=== PATIENT | female | born 2000 | race Two or more races ===

== ENCOUNTER 2023-02-14 11:50 | Emergency (ER) | payer SELFPAY ==
[2023-02-14 12:40] LABS: BASOPHILS ABSOLUTE AUTO 0.03 K/mm3 (0.01-0.08); BASOPHILS PERCENT AUTO 0.4 % (0.1-1.2); EOSINOPHILS PERCENT AUTO 1.3 (0.7-5.8); HEMATOCRIT 38.4 % (34.1-44.9); HEMOGLOBIN 13.1 gm/dl (11.2-15.7); IMMATURE GRAN ABSOLUTE AUTO 0.01 K/mm3 (0.00-0.10); IMMATURE GRAN PERCENT AUTO 0.1 % (<=1.0); LYMPHOCYTES ABSOLUTE AUTO 2.28 K/mm3 (1.18-3.74); LYMPHOCYTES PERCENT AUTO 29.2 % (19.3-51.7); MEAN CORPUSCULAR HEMOGLOBIN 31.1 pg (25.6-32.2); MEAN CORPUSCULAR HGB CONC 34.1 g/dl (32.2-35.5); MEAN CORPUSCULAR VOLUME 91.2 fl (79.4-94.8); MEAN PLATELET VOLUME 9.9 fl (9.4-12.3); MONOCYTES ABSOLUTE AUTO 0.54 K/mm3 (0.24-0.36); MONOCYTES PERCENT AUTO 6.9 % (4.7-12.5); NEUTROPHILS ABSOLUTE AUTO 4.86 K/mm3 (1.56-6.13); NEUTROPHILS PERCENT AUTO 62.1 % (34.0-71.1); PLATELET COUNT,PLT 310 K/mm3 (182-369); RED BLOOD CELL COUNT 4.21 M/mm3 (3.98-5.22); WHITE BLOOD CELL COUNT,WBC 7.82 K/mm3 (3.98-10.04)
[2023-02-14 13:23] LABS: A/G RATIO 0.9 (1-2); ALBUMIN 3.7 g/dl (3.4-5.0); ANION GAP 14.8 (5-15); BILIRUBIN TOTAL 0.4 mg/dL (0.2-1.0); CALCIUM 9.4 mg/dL (8.5-10.1); CREATININE 0.5 mg/dL (0.55-1.02); EST CRCL DRUG DOSING (CG) 132.05 mL/min; POTASSIUM,K 3.8 mEq/L (3.5-5.1)
[2023-02-14 14:04] LABS: APPEARANCE,URINE CLEAR (Clear); BILIRUBIN,URINE NEGATIVE (Negative); COLOR,URINE YELLOW (Yellow); GLUCOSE,URINE NEGATIVE (Negative); KETONES,URINE 2+ (Negative); LEUKOCYTE ESTERASE,URINE NEGATIVE (Negative); NITRITE,URINE NEGATIVE (Negative); OCCULT BLOOD,URINE 1+ (Negative); PROTEIN,URINE NEGATIVE (Negative); UROBILINOGEN,URINE 0.2 (0.2-1.0)
[2023-02-14 14:11] LABS: BACTERIA,URINE MODERATE /hpf (FEW); MUCUS,URINE MODERATE /hpf (FEW); SQUAMOUS EPITHELIAL CELLS,UR 0-5 /hpf (0-5); WBC,URINE 0-5 /hpf (0-5)
== END 2023-02-14 14:39 | disposition home or self-care (01) ==
LOC: JD.ED 11:50
DX: O26.851 Spotting complicating pregnancy, first trimester (principal); Z3A.11 11 weeks gestation of pregnancy
CPT/HCPCS: 36415; 76817; 76817-26; 80053; 81001; 84702; 85025; 86900; 86901; 99283; 99284

== ENCOUNTER 2023-05-03 16:45 | Observation (INO) | payer BC ==
[2023-05-03] MEDS ORDERED: Sodium Chloride 0.9% 10 ML Syringe FLUSH PRN (17:02)
[2023-05-03 17:31] VITALS: PULSE 91
[2023-05-03 18:03] LABS: BASOPHILS PERCENT AUTO 0.2 % (0.0-1.0); EOSINOPHILS ABSOLUTE AUTO 0.3 K/mm3 (0.0-0.4); EOSINOPHILS PERCENT AUTO 2.5 % (0.0-6.0); HEMATOCRIT 37.4 % (37.0-47.0); IMMATURE GRAN ABSOLUTE AUTO 0.03 K/mm3 (0.00-0.05); IMMATURE GRAN PERCENT AUTO 0.3 % (0.0-0.4); LYMPHOCYTES ABSOLUTE AUTO 1.8 K/mm3 (1.0-4.8); LYMPHOCYTES PERCENT AUTO 14.9 % (24.0-44.0); MEAN CORPUSCULAR HGB CONC 34.8 g/dl (32.0-36.0); MEAN CORPUSCULAR VOLUME 92.1 fl (83.0-99.0); MEAN PLATELET VOLUME 9.8 fl (9.4-12.3); MONOCYTES ABSOLUTE AUTO 0.5 K/mm3 (0.0-0.8); MONOCYTES PERCENT AUTO 4.1 % (0.0-8.0); NEUTROPHILS ABSOLUTE AUTO 9.3 K/mm3 (1.8-7.7); PLATELET COUNT,PLT 327 K/mm3 (150-400); RED BLOOD CELL COUNT 4.06 M/mm3 (4.10-5.30)
[2023-05-03] MEDS ORDERED: Misoprostol 200 MCG Tab VAG SCH (18:13)
[2023-05-03] MEDS ORDERED: Misoprostol 200 MCG Tab VAG ONE (18:15)
[2023-05-03 18:27] LABS: HEMOGLOBIN A1C 5.1 %
[2023-05-03] MEDS: Misoprostol 25 MCG (1/4 of 100 MCG) Tab VAG ONE ×2 (18:38→19:16)
[2023-05-03] MEDS: Misoprostol 25 MCG (1/4 of 100 MCG) Tab VAG SCH ×2 (18:39→20:16)
[2023-05-03 20:29] LABS: BARBITURATE SCREEN,URINE NEGATIVE (CUTOFF=200); BENZODIAZEPINES SCREEN,URINE NEGATIVE (CUTOFF=150); BUPRENORPHINE SCREEN,URINE NEGATIVE (CUTOFF=10); METHADONE SCREEN, URINE NEGATIVE (CUTOFF=200); METHAMPHETAMINES SCREEN, URINE NEGATIVE (CUTOFF=500); OXYCODONE SCREEN,URINE NEGATIVE (CUT0FF=100); THC SCREEN,URINE 20 NG/ML NEGATIVE (CUTOFF=50)
[2023-05-03 20:35] LABS: AMPHETAMINES SCREEN, URINE NEGATIVE (CUTOFF=500)
[2023-05-03] MEDS ORDERED: Sodium Chloride 0.9% 10 ML Syringe FLUSH SCH (21:00)
[2023-05-03] MEDS: Misoprostol 200 MCG Tab VAG SCH (21:11)
[2023-05-04] MEDS ORDERED: HYDROmorphone 0.5 MG/0.5 ML Syringe IVPUSH PRN (00:10)
[2023-05-04] MEDS: Misoprostol 200 MCG Tab VAG SCH (00:20)
[2023-05-04] MEDS ORDERED: Ondansetron 4 MG/2 ML SDV IVPUSH PRN (00:21)
[2023-05-04] MEDS ORDERED: Misoprostol 200 MCG Tab PO STA (01:28)
[2023-05-04] MEDS ORDERED: Ibuprofen 600 MG Tab PO PRN (01:59)
[2023-05-04] MEDS ORDERED: Acetaminophen 325 MG Tab PO PRN (01:59)
[2023-05-04 12:26] VITALS: BP 105/84
== END 2023-05-04 10:30 | disposition home or self-care (01) ==
LOC: JD.OBCHECK 16:45 → JD.OB 16:48 → JD.OBCHECK 17:02
PROVIDERS: ADMIT Obstetrics & Gynecology; ATTEND Obstetrics & Gynecology
DX: O02.1 Missed abortion (principal); Z88.8 Allergy status to other drugs, medicaments and biological substances
CPT/HCPCS: 80306; 83036; 84443; 85025; 85460; 85613; 85730; 86146; 86147; 86592; 86850; 86900; 86901; 87070; 87075; 87077; 87186; 87205; 88233; 96374; 96375; A9270; G0378; J1170; J2405

== ENCOUNTER 2024-11-22 19:03 | Inpatient (IN) | payer BC ==
[2024-11-22] MEDS ORDERED: Ondansetron 4 MG/2 ML SDV IVPUSH PRN (19:23)
[2024-11-22] MEDS ORDERED: Sodium Chloride 0.9% 10 ML Syringe FLUSH PRN (19:23)
[2024-11-22] MEDS ORDERED: Lidocaine 1% 50 ML MDV INJECT PRN (19:23)
[2024-11-22] MEDS: Lactated Ringers 1,000 ML IV SCH (19:37)
[2024-11-22 19:40] LABS: BASOPHILS PERCENT AUTO 0.2 % (0.0-1.0); EOSINOPHILS ABSOLUTE AUTO 0.1 K/mm3 (0.0-0.4); EOSINOPHILS PERCENT AUTO 0.3 % (0.0-6.0); HEMATOCRIT 35.5 % (37.0-47.0); HEMOGLOBIN 11.8 gm/dl (12.0-16.0); IMMATURE GRAN ABSOLUTE AUTO 0.12 K/mm3 (0.00-0.05); IMMATURE GRAN PERCENT AUTO 0.6 % (0.0-0.4); MEAN CORPUSCULAR HEMOGLOBIN 29.1 pg (28.0-32.0); MEAN CORPUSCULAR HGB CONC 33.2 g/dl (32.0-36.0); MEAN CORPUSCULAR VOLUME 87.7 fl (83.0-99.0); MEAN PLATELET VOLUME 9.6 fl (9.4-12.3); MONOCYTES ABSOLUTE AUTO 1.2 K/mm3 (0.0-0.8); MONOCYTES PERCENT AUTO 6.6 % (0.0-8.0); NEUTROPHILS ABSOLUTE AUTO 14.3 K/mm3 (1.8-7.7); NEUTROPHILS PERCENT AUTO 76.3 % (41.0-71.0); PLATELET COUNT,PLT 369 K/mm3 (150-400); RED BLOOD CELL COUNT 4.05 M/mm3 (4.10-5.30); WHITE BLOOD CELL COUNT,WBC 18.76 K/mm3 (3.9-11.3)
[2024-11-22] MEDS: Nalbuphine 10 MG/1 ML Vial IVPUSH PRN (20:07)
[2024-11-22] MEDS ORDERED: ePHEDrine 50 MG/ML SDV IVPUSH PRN (21:36)
[2024-11-22] MEDS ORDERED: diphenhydrAMINE 50 MG/ML SDV IVPUSH PRN (21:36)
[2024-11-22] MEDS: fentaNYL 100 MCG/2 ML SDV EPIDUR PRN (21:51)
[2024-11-22] MEDS: Bupivacaine/fentaNYL/NS 100 ML Bag EPIDUR PRN (21:51)
[2024-11-23] MEDS: Oxytocin/0.9 % Sodium Chloride 30 UNIT/500 ML BAG IV SCH (03:10)
[2024-11-23] MEDS ORDERED: Acetaminophen 325 MG Tab PO PRN (04:02)
[2024-11-23] MEDS ORDERED: Benzocaine/Menthol 20%-0.5% Spray 78 GM Cannister TOP PRN (04:02)
[2024-11-23] MEDS ORDERED: Hydrocortisone Acetate 25 MG Supp RECTAL PRN (04:02)
[2024-11-23] MEDS ORDERED: Witch Hazel Medicated Pads 40/Jar TOP PRN (04:02)
[2024-11-23] MEDS ORDERED: Magnesium Hydroxide 400 MG/5 ML Susp 30 ML Cup PO PRN (04:02)
[2024-11-23] MEDS ORDERED: Simethicone 80 MG Tab.Chew PO PRN (04:02)
[2024-11-23] MEDS ORDERED: Oxytocin/0.9 % Sodium Chloride 30 UNIT/500 ML BAG IV SCH (04:02)
[2024-11-23] MEDS: Ibuprofen 600 MG Tab PO SCH (04:49)
[2024-11-23] MEDS: Sodium Chloride 0.9% 10 ML Syringe FLUSH SCH (07:34)
[2024-11-23] MEDS: Docusate Sodium 100 MG Cap PO PRN (09:41)
[2024-11-23] MEDS: Prenatal Multivitamin with Calcium/Folic Acid/Iron Tab PO SCH (09:41)
[2024-11-25 10:23] VITALS: BP 114/85; PULSE 73
== END 2024-11-25 12:30 | disposition home or self-care (01) | DRG 560 ==
LOC: JD.OBCHECK 19:03 → JD.OB 19:06 → JD.OBCHECK 19:32 → JD.OB 19:33 → OBSVTOIN 11-23 03:04 → JD.OB 11-23 03:05
PROVIDERS: ADMIT Obstetrics & Gynecology; ATTEND Obstetrics & Gynecology
PROC: 10E0XZZ Delivery of Products of Conception, External Approach (ICD-10-PCS; principal; 2024-11-23)
PROC: 10907ZC Drainage of Amniotic Fluid, Therapeutic from Products of Conception, Via Natural or Artificial Opening (ICD-10-PCS; principal; 2024-11-23)
PROC: 0HQ9XZZ Repair Perineum Skin, External Approach (ICD-10-PCS; principal; 2024-11-23)
PROC: 3E0R3BZ Introduction of Anesthetic Agent into Spinal Canal, Percutaneous Approach (ICD-10-PCS; principal; 2024-11-23)
DX: O70.0 First degree perineal laceration during delivery (principal); Z37.0 Single live birth; Z79.899 Other long term (current) drug therapy; Z3A.39 39 weeks gestation of pregnancy; Z88.8 Allergy status to other drugs, medicaments and biological substances; O77.0 Labor and delivery complicated by meconium in amniotic fluid; O75.5 Delayed delivery after artificial rupture of membranes
CPT/HCPCS: 36415; 51702; 59025; 59409; 85025; 86592; 86850; 86900; 86901; A9270-GY; J2300; J3010; J3490; J7120; J7999